=== PATIENT | male | born 1985 | race Caucasian/White ===

== ENCOUNTER 2020-02-11 20:28 | Emergency (ER) | payer OTHER ==
[~2020-02-11] VITALS: Ht 175.3 cm; Wt 79.4 kg
[2020-02-11 20:47] VITALS: BP 158/86
--- NOTE | 2020-02-11 20:53 | NUR ---
34 Y/O MALE PRESENTED TO ED C/O COUGH & SORE THROAT X 1 WEEK . PT BL CRACKLES IN BASES. + PRODUCTIVE COUGH- PT STATES HE'S BEEN HAVING BLOOD SPUTUM X 1 DAY . RR EVEN AND UNLABORED . SAO2 99%. PT DENIES FEVER, CHEST PAIN, CHILLS , DIARRHEA. PT A/O X 4 , AFEBRILE , NO ACUTE DISTRESS NOTED AT THIS TIME. PT RESTING IN BED, LOCKED AND IN LOWEST POSITION, HOB ELEVATED , SIDE RAIL X1. ERMD MADE AWARE OF PT STATUS. PMH: DENIES NKA
--- NOTE | 2020-02-11 20:53 | NUR ---
PT AMBULATED TO ER BED 10
--- NOTE | 2020-02-11 21:28 | NUR ---
ERMD AT BEDSIDE FOR MEDICAL EVALUATION.
--- NOTE | 2020-02-11 21:49 | NUR ---
NOVEL COVID SWAB COLLECTED AND WALKED TO LAB.
[2020-02-11 22:33] VITALS: BP 158/86
--- NOTE | 2020-02-11 22:35 | NUR ---
Patient discharged with v/s stable. Written and verbal after care instructions given and explained. Patient alert, oriented and verbalized understanding of instructions. Ambulatory with steady gait. All questions addressed prior to discharge. ID band removed. Patient advised to follow up with PMD. Rx of DEXTROMTHORPHAN & GUAIFENESIN & CHLORASEPTIC given. Patient educated on indication of medication including possible reaction and side effects. Opportunity to ask questions provided and answered.
== END 2020-02-11 22:35 | disposition home or self-care (01) ==
LOC: MED 20:28
DX: R05 Cough (principal); J02.9 Acute pharyngitis, unspecified; Z20.828 Contact with and (suspected) exposure to other viral communicable diseases
CPT/HCPCS: 71045; 99284; Q0092; U0003